=== PATIENT | male | born 1975 | race Caucasian/White ===

== ENCOUNTER → 2022-01-26 | Outpatient (CLI) | payer OTHER ==
[2022-01-27 07:11] LABS: HBSAG SCREEN Negative (Negative); HCV ANTIBODY 0.1 (0.0-0.9); HEP B SURFACE AB Reactive (.)
== END | disposition home or self-care (01) ==
LOC: LAB SHORT 15:50
PROVIDERS: Nurse Practitioner Acute Care
DX: Z77.21 Contact with and (suspected) exposure to potentially hazardous body fluids (principal)
CPT/HCPCS: 84460; 86803; 87340

== ENCOUNTER → 2022-01-27 | Outpatient (CLI) | payer OTHER | END | disposition home or self-care (01) | LOC: LAB 08:25 → LAB SHORT 08:25 | DX: Z77.21 Contact with and (suspected) exposure to potentially hazardous body fluids (principal) | CPT/HCPCS: 86703 ==

== ENCOUNTER → 2022-03-14 | Outpatient (CLI) | payer OTHER ==
[2022-03-15 10:11] LABS: HIV AB/P24 AG SCREEN Non Reactive (Non Reactive)
== END | disposition home or self-care (01) ==
LOC: LAB SHORT 09:30
PROVIDERS: Nurse Practitioner Family
DX: Z77.21 Contact with and (suspected) exposure to potentially hazardous body fluids (principal)
CPT/HCPCS: 86803; 87389

== ENCOUNTER → 2022-05-17 | Outpatient (CLI) | payer OTHER ==
[2022-05-18 07:10] LABS: HIV AB/P24 AG SCREEN Non Reactive (Non Reactive)
== END | disposition home or self-care (01) ==
LOC: LAB SHORT 12:05 → LAB 12:05
PROVIDERS: Nurse Practitioner Family
DX: T14.90XD Injury, unspecified, subsequent encounter (principal); W46.1XXA Contact with contaminated hypodermic needle, initial encounter
CPT/HCPCS: 87389

== ENCOUNTER → 2022-09-27 | Outpatient (CLI) | payer SELFPAY ==
[2022-09-28 09:12] LABS: HCV ANTIBODY Non Reactive (Non Reactive); HEP B SURFACE AB Reactive (.); HIV AB/P24 AG SCREEN Non Reactive (Non Reactive)
== END | disposition home or self-care (01) ==
LOC: LAB 16:44 → LAB SHORT 16:44
PROVIDERS: Nurse Practitioner Family
DX: Z77.21 Contact with and (suspected) exposure to potentially hazardous body fluids (principal)
CPT/HCPCS: 84460; 86803; 87389